=== PATIENT | male | born 1985 | race Caucasian/White ===

== ENCOUNTER 2016-09-30 10:49 | Emergency (ER) | payer MEDICAID ==
[~2016-09-30] VITALS: Ht 190.5 cm; Wt 136.7 kg
[2016-09-30 10:51] VITALS: BP 143/85
== END 2016-09-30 12:33 | disposition home or self-care (01) ==
LOC: ED 12:09
DX: B35.3 Tinea pedis (principal); F41.1 Generalized anxiety disorder
CPT/HCPCS: 99282